=== PATIENT | female | born 1930 | race Caucasian/White ===

== ENCOUNTER 2019-11-08 23:55 | Observation (INO) ==
[2019-11-09] MEDS ORDERED: ONDANSETRON ODT 4 MG TABLET PO STA (00:23)
[2019-11-09] MEDS ORDERED: ONDANSETRON 4 MG/2 ML VIAL IV PRN (03:11)
[2019-11-09] MEDS ORDERED: ALBUTEROL/IPRATROPIUM 3 ML NEB RESP TX PRN (03:11)
[2019-11-09] MEDS ORDERED: ACETAMINOPHEN 325 MG TABLET PO PRN (03:11)
[2019-11-09] MEDS ORDERED: MELATONIN 3 MG TABLET PO PRN (03:11)
[2019-11-09] MEDS: SODIUM CHLORIDE 0.9% 1,000 ML IV SCH ×2 (03:30→18:51)
[2019-11-09 07:47] LABS: Basophils # 0.1 10*3/uL (0.0-0.2); Basophils % 0.6 % (0.0-0.8); Eosinophils # 0.1 10*3/uL (0.0-0.87); Hematocrit 33.7 VOL% (35.7-47.0); Hemoglobin 11.1 GM/DL (12.0-16.0); Immature Granulocytes % 0.4 %; Immature Granulocytes Absolute 0.04 #; Lymphocytes # 3.7 10*3/uL (1.4-4.0); Lymphocytes % 38.7 % (21.3-54.2); Mean Corpuscular HGB Conc 32.9 GM/DL (32-36); Mean Corpuscular Volume 95.2 FL (87-102); Mean Platelet Volume 10.2 FL (9.6-12.0); Neutrophils % 51.3 % (38.7-73.9); Platelet Count 326 T/CUMM (130-400); Red Blood Count 3.54 MC/CUMM (3.8-5.5); Red Cell Distribution Width 13.3 % (9.3-17.3); White Blood Count 9.5 T/CUMM (4-12)
[2019-11-09 08:11] LABS: Bilirubin,Total 0.4 MG/DL (0.2-1.0); Calcium 8.2 MG/DL (8.5-10.1); Osmolality,Calculated 282.4 MOS/KG (273-304); Total Protein 6.8 G/DL (6.4-8.3)
[2019-11-09] MEDS: PANTOPRAZOLE 40 MG TABLET PO SCH (10:07)
[2019-11-09] MEDS: DOCUSATE SODIUM 100 MG CAPSULE PO SCH ×2 (10:07→20:48)
[2019-11-09] MEDS: METOPROLOL SUCCINATE XL 25 MG TABLET PO SCH (10:07)
[2019-11-09] MEDS: ASPIRIN EC 325 MG TABLET PO SCH (10:07)
[2019-11-09] MEDS: TOLTERODINE LA 4 MG CAPSULE PO SCH (10:07)
[2019-11-09] MEDS: CITALOPRAM 20 MG TABLET PO SCH (10:07)
[2019-11-09] MEDS: KETOROLAC 10 MG TABLET PO PRN (20:48)
[2019-11-10] MEDS: KETOROLAC 10 MG TABLET PO PRN (03:19)
[2019-11-10 07:11] LABS: Amorphous Crystals,Urine Few /HPF (Few); Apearance,Urine Slightly Hazy (Clear); Bacteria,Urine Moderate /HPF (Few); Bilirubin,Urine Negative (Negative); Blood, Urine Small mg/dL (Negative); Glucose,Urine (UA) Negative (Negative); Ketones,Urine Negative (Negative); Mucus,Urine Few /LPF (Occasional); Nitrite,Urine Positive (Negative); Protein,Urine Negative; RBC,Urine 2 /HPF (0-4); Squamous Epithelial Cell,Urine Occasional /HPF (0-10); Urine Color Yellow (Yellow); Urine Specific Gravity 1.013 (1.001-1.035); Urine Urobilinogen < 2.0 EU/DL (0.2-1.0); WBC,Urine 37 /HPF (0-6)
[2019-11-10] MEDS: DOCUSATE SODIUM 100 MG/10 ML UDCUP PO SCH ×2 (09:01→23:21)
[2019-11-10] MEDS: METOPROLOL SUCCINATE XL 25 MG TABLET PO SCH (09:01)
[2019-11-10] MEDS: CITALOPRAM 20 MG TABLET PO SCH (09:01)
[2019-11-10] MEDS: ASPIRIN EC 325 MG TABLET PO SCH (09:01)
[2019-11-10] MEDS: PANTOPRAZOLE 40 MG TABLET PO SCH (09:01)
[2019-11-10] MEDS: TOLTERODINE LA 4 MG CAPSULE PO SCH (09:02)
[2019-11-10] MEDS ORDERED: cefTRIAXone 1,000 MG in SYRINGE 1 EACH IV ONE (11:00)
[2019-11-10] MEDS: SODIUM CHLORIDE 0.9% 1,000 ML IV SCH ×2 (11:42→20:09)
[2019-11-10] MEDS: NITROFURANTOIN MACRO/MONO 100 MG CAPSULE PO SCH ×2 (12:13→23:21)
[2019-11-11] MEDS: KETOROLAC 10 MG TABLET PO PRN (03:05)
[2019-11-11] MEDS: SODIUM CHLORIDE 0.9% 1,000 ML IV SCH (06:10)
[2019-11-11] MEDS: PANTOPRAZOLE 40 MG TABLET PO SCH (10:20)
[2019-11-11] MEDS: TOLTERODINE LA 4 MG CAPSULE PO SCH (10:20)
[2019-11-11] MEDS: DOCUSATE SODIUM 100 MG/10 ML UDCUP PO SCH ×2 (10:20→10:30)
[2019-11-11] MEDS: METOPROLOL SUCCINATE XL 25 MG TABLET PO SCH (10:20)
[2019-11-11] MEDS: CITALOPRAM 20 MG TABLET PO SCH (10:20)
[2019-11-11] MEDS: NITROFURANTOIN MACRO/MONO 100 MG CAPSULE PO SCH (10:21)
[2019-11-11] MEDS: ASPIRIN EC 325 MG TABLET PO SCH (10:21)
[2019-11-11 11:27] VITALS: BP 139/66
[2019-11-11] MEDS ORDERED: DIGOXIN 0.125 MG TABLET PO SCH (13:00)
== END 2019-11-11 12:18 | disposition home or self-care (01) ==
LOC: N.ED 23:55 → N.EDINP 23:55 → N.3E 11-09 03:10
PROVIDERS: ADMIT Family Medicine; ATTEND Family Medicine

== ENCOUNTER 2020-01-09 16:11 | Inpatient (IN) ==
[2020-01-09] MEDS ORDERED: SODIUM CHLORIDE 0.9% 500 ML IV STA (16:38)
[2020-01-09 17:30] LABS: Basophils # 0.1 10*3/uL (0.0-0.2); Basophils % 0.5 % (0.0-0.8); Eosinophils # 0.1 10*3/uL (0.0-0.87); Hematocrit 32.5 VOL% (35.7-47.0); Hemoglobin 10.7 GM/DL (12.0-16.0); Immature Granulocytes % 0.3 %; Immature Granulocytes Absolute 0.03 #; Lymphocytes # 3.9 10*3/uL (1.4-4.0); Lymphocytes % 41.9 % (21.3-54.2); Mean Corpuscular HGB Conc 32.9 GM/DL (32-36); Mean Corpuscular Volume 95.6 FL (87-102); Mean Platelet Volume 10.3 FL (9.6-12.0); Monocytes % 8.3 % (1.7-12.7); Platelet Count 380 T/CUMM (130-400); Red Cell Distribution Width 13.7 % (9.3-17.3); White Blood Count 9.2 T/CUMM (4-12)
[2020-01-09 17:54] LABS: Alanine Aminotransferase 18 U/L (13-56); Alkaline Phosphatase 96 U/L (45-117); Aspartate Amino Transferase 21 U/L (0-37); Bilirubin,Total < 0.39 MG/DL (0.2-1.0); Blood Urea Nitrogen 20 MG/DL (7-18); Calcium 8.7 MG/DL (8.5-10.1); Estimated Glom Filtration Rate 46 ML/MIN; Glucose 111 MG/DL (74-106); Osmolality,Calculated 286.1 MOS/KG (273-304); Total Protein 6.9 G/DL (6.4-8.3)
[2020-01-09 18:08] LABS: Apearance,Urine CLOUDY (Clear); Bacteria,Urine Many /HPF (Few); Bilirubin,Urine Negative (Negative); Blood, Urine Small mg/dL (Negative); Glucose,Urine (UA) Negative (Negative); Ketones,Urine Negative (Negative); Mucus,Urine Many /LPF (Occasional); Nitrite,Urine Positive (Negative); Protein,Urine Negative; RBC,Urine 2 /HPF (0-4); Squamous Epithelial Cell,Urine Occasional /HPF (0-10); Urine Color Yellow (Yellow); Urine Specific Gravity 1.013 (1.001-1.035); Urine Urobilinogen < 2.0 EU/DL (0.2-1.0); WBC,Urine 102 /HPF (0-6)
[2020-01-09 18:12] LABS: Barbiturates Screen,Urine Negative (Negative); Benzodiazepines Screen,Urine Negative (Negative); Cannabinoid Screen,Urine Negative (Negative); Opiate Screen,Urine Negative (Negative); Phencyclidine Screen,Urine Negative (Negative)
[2020-01-09] MEDS ORDERED: LEVOFLOXACIN INJ 750 MG in PREMIX 1 EACH IV STA (18:50)
[2020-01-09] MEDS ORDERED: ACETAMINOPHEN 325 MG TABLET PO PRN (20:27)
[2020-01-09] MEDS ORDERED: ONDANSETRON 4 MG/2 ML VIAL IV PRN (20:27)
[2020-01-09] MEDS ORDERED: MORPHINE 4 MG/1 ML VIAL IV PRN (20:27)
[2020-01-09] MEDS: SODIUM CHLORIDE 0.9% 1,000 ML IV SCH (21:52)
[2020-01-09] MEDS: DOCUSATE SODIUM 100 MG CAPSULE PO SCH (21:54)
[2020-01-10 04:52] LABS: Basophils # 0.1 10*3/uL (0.0-0.2); Basophils % 0.7 % (0.0-0.8); Eosinophils # 0.1 10*3/uL (0.0-0.87); Eosinophils % 1.6 % (0.00-10.9); Hematocrit 31.5 VOL% (35.7-47.0); Hemoglobin 10.4 GM/DL (12.0-16.0); Immature Granulocytes % 0.1 %; Immature Granulocytes Absolute 0.01 #; Lymphocytes # 4.3 10*3/uL (1.4-4.0); Lymphocytes % 51.6 % (21.3-54.2); Mean Corpuscular Volume 94.9 FL (87-102); Mean Platelet Volume 10.5 FL (9.6-12.0); Monocytes % 10.2 % (1.7-12.7); Neutrophils % 35.8 % (38.7-73.9); Platelet Count 387 T/CUMM (130-400); Red Blood Count 3.32 MC/CUMM (3.8-5.5); Red Cell Distribution Width 13.5 % (9.3-17.3); White Blood Count 8.3 T/CUMM (4-12)
[2020-01-10 05:20] LABS: Albumin 2.8 G/DL (3.4-5.0); Bilirubin,Total 0.8 MG/DL (0.2-1.0); Calcium 8.2 MG/DL (8.5-10.1); Osmolality,Calculated 285.8 MOS/KG (273-304); Total Protein 6.3 G/DL (6.4-8.3)
[2020-01-10 05:21] LABS: Eosinophils 1 % (0-10); Hypochromasia 1+; Lymphocytes 57 % (20-55); Platelet Estimate Adequate; Segmented Neutrophils 34 % (50-85); Total Cells Counted 100
[2020-01-10] MEDS: SODIUM CHLORIDE 0.9% 1,000 ML IV SCH ×3 (05:55→21:18)
[2020-01-10] MEDS: PANTOPRAZOLE 40 MG TABLET PO SCH (09:18)
[2020-01-10] MEDS ORDERED: POTASSIUM CHLORIDE 20 MEQ/15 ML UDCUP PO PRN (09:34)
[2020-01-10] MEDS ORDERED: traMADol 50 MG TABLET PO PRN (09:38)
[2020-01-10] MEDS: DOCUSATE SODIUM 100 MG CAPSULE PO SCH ×2 (09:43→21:12)
[2020-01-10] MEDS ORDERED: BISACODYL 10 MG SUPP RECTAL PRN (12:15)
[2020-01-10] MEDS ORDERED: BISACODYL 10 MG SUPP RECTAL ONE (12:15)
[2020-01-10] MEDS: POTASSIUM CHLORIDE RIDER 10 MEQ in PREMIX 1 EACH IV PRN ×4 (12:51→17:37)
[2020-01-10] MEDS: DIGOXIN 0.125 MG TABLET PO SCH (13:20)
[2020-01-10] MEDS: RIVASTIGMINE 1.5 MG CAPSULE PO SCH (17:36)
[2020-01-10] MEDS ORDERED: LEVOFLOXACIN INJ 250 MG in PREMIX 1 EACH IV SCH (21:00)
[2020-01-10] MEDS: TEMAZEPAM 15 MG CAPSULE PO SCH (21:13)
[2020-01-11] MEDS: SODIUM CHLORIDE 0.9% 1,000 ML IV SCH ×3 (05:22→17:22)
[2020-01-11 06:09] LABS: Basophils # 0.1 10*3/uL (0.0-0.2); Basophils % 0.9 % (0.0-0.8); Eosinophils # 0.2 10*3/uL (0.0-0.87); Eosinophils % 2.4 % (0.00-10.9); Hematocrit 32.2 VOL% (35.7-47.0); Hemoglobin 10.5 GM/DL (12.0-16.0); Immature Granulocytes % 0.2 %; Immature Granulocytes Absolute 0.01 #; Lymphocytes # 3.5 10*3/uL (1.4-4.0); Lymphocytes % 53.9 % (21.3-54.2); Mean Corpuscular HGB Conc 32.6 GM/DL (32-36); Mean Corpuscular Volume 97.3 FL (87-102); Mean Platelet Volume 10.8 FL (9.6-12.0); Monocytes % 10.2 % (1.7-12.7); Neutrophils % 32.4 % (38.7-73.9); Platelet Count 366 T/CUMM (130-400); Red Blood Count 3.31 MC/CUMM (3.8-5.5); Red Cell Distribution Width 14.1 % (9.3-17.3); White Blood Count 6.6 T/CUMM (4-12)
[2020-01-11 06:38] LABS: Calcium 8.1 MG/DL (8.5-10.1); Osmolality,Calculated 280.1 MOS/KG (273-304)
[2020-01-11 06:52] LABS: Acanthocytes 1+; Atypical Lymphocytes Few; Eosinophils 1 % (0-10); Lymphocytes 49 % (20-55); Segmented Neutrophils 38 % (50-85); Total Cells Counted 100
[2020-01-11 06:53] LABS: Microcytosis Slight; Platelet Estimate Normal
[2020-01-11] MEDS: cefTRIAXone 1,000 MG in SYRINGE 1 EACH IV SCH (09:20)
[2020-01-11] MEDS: DOCUSATE SODIUM 100 MG CAPSULE PO SCH ×2 (09:21→21:35)
[2020-01-11] MEDS: PANTOPRAZOLE 40 MG TABLET PO SCH (09:22)
[2020-01-11] MEDS: ASPIRIN EC 325 MG TABLET PO SCH (09:22)
[2020-01-11] MEDS: RIVASTIGMINE 1.5 MG CAPSULE PO SCH ×2 (09:23→17:23)
[2020-01-11] MEDS: POTASSIUM CHLORIDE RIDER 10 MEQ in PREMIX 1 EACH IV PRN ×5 (09:34→14:45)
[2020-01-11] MEDS ORDERED: SODIUM CHLOR 0.9% KCL 20 MEQ 20 MEQ/1,000 ML BAG IV SCH (15:30)
[2020-01-11] MEDS: TEMAZEPAM 15 MG CAPSULE PO SCH (21:32)
[2020-01-11] MEDS: POTASSIUM CHLORIDE 20 MEQ TABLET PO SCH (21:35)
[2020-01-12 06:15] LABS: Basophils % 0.3 % (0.0-0.8); Eosinophils # 0.3 10*3/uL (0.0-0.87); Eosinophils % 2.9 % (0.00-10.9); Hemoglobin 10.3 GM/DL (12.0-16.0); Immature Granulocytes % 0.3 %; Immature Granulocytes Absolute 0.03 #; Lymphocytes # 3.3 10*3/uL (1.4-4.0); Lymphocytes % 35.3 % (21.3-54.2); Mean Corpuscular HGB Conc 33.2 GM/DL (32-36); Mean Corpuscular Volume 95.7 FL (87-102); Mean Platelet Volume 10.8 FL (9.6-12.0); Monocytes % 9.2 % (1.7-12.7); Platelet Count 352 T/CUMM (130-400); Red Blood Count 3.24 MC/CUMM (3.8-5.5); Red Cell Distribution Width 13.8 % (9.3-17.3); White Blood Count 9.2 T/CUMM (4-12)
[2020-01-12 06:29] LABS: Albumin 2.6 G/DL (3.4-5.0); Bilirubin,Total 0.9 MG/DL (0.2-1.0); Calcium 8.1 MG/DL (8.5-10.1); Osmolality,Calculated 281.1 MOS/KG (273-304)
[2020-01-12] MEDS: cefTRIAXone 1,000 MG in SYRINGE 1 EACH IV SCH (09:23)
[2020-01-12] MEDS: ASPIRIN EC 325 MG TABLET PO SCH (09:24)
[2020-01-12] MEDS: POTASSIUM CHLORIDE 20 MEQ TABLET PO SCH ×2 (09:24→20:50)
[2020-01-12] MEDS: DOCUSATE SODIUM 100 MG CAPSULE PO SCH ×2 (09:24→20:50)
[2020-01-12] MEDS: RIVASTIGMINE 1.5 MG CAPSULE PO SCH ×2 (09:24→18:11)
[2020-01-12] MEDS: PANTOPRAZOLE 40 MG TABLET PO SCH (09:25)
[2020-01-12] MEDS: POTASSIUM CHLORIDE RIDER 10 MEQ in PREMIX 1 EACH IV PRN ×4 (09:48→14:08)
[2020-01-12] MEDS: SODIUM CHLORIDE 0.9% 1,000 ML IV SCH ×2 (13:35→18:42)
[2020-01-12] MEDS ORDERED: POTASSIUM CHLORIDE RIDER 10 MEQ in PREMIX 1 EACH IV SCH (19:00)
[2020-01-12] MEDS: SODIUM CHLOR 0.9% KCL 20 MEQ 20 MEQ/1,000 ML BAG IV SCH (20:42)
[2020-01-12] MEDS: TEMAZEPAM 15 MG CAPSULE PO SCH (20:44)
[2020-01-13 05:47] LABS: Basophils # 0.1 10*3/uL (0.0-0.2); Basophils % 0.9 % (0.0-0.8); Eosinophils # 0.3 10*3/uL (0.0-0.87); Eosinophils % 3.5 % (0.00-10.9); Hematocrit 30.9 VOL% (35.7-47.0); Hemoglobin 10.3 GM/DL (12.0-16.0); Immature Granulocytes % 0.2 %; Immature Granulocytes Absolute 0.02 #; Lymphocytes # 3.5 10*3/uL (1.4-4.0); Lymphocytes % 38.9 % (21.3-54.2); Mean Corpuscular HGB Conc 33.3 GM/DL (32-36); Mean Corpuscular Volume 95.7 FL (87-102); Mean Platelet Volume 10.5 FL (9.6-12.0); Monocytes % 9.7 % (1.7-12.7); Neutrophils % 46.8 % (38.7-73.9); Platelet Count 346 T/CUMM (130-400); Red Blood Count 3.23 MC/CUMM (3.8-5.5); Red Cell Distribution Width 13.9 % (9.3-17.3)
[2020-01-13 06:05] LABS: Calcium 8.4 MG/DL (8.5-10.1)
[2020-01-13] MEDS: RIVASTIGMINE 1.5 MG CAPSULE PO SCH (09:07)
[2020-01-13] MEDS: POTASSIUM CHLORIDE 20 MEQ TABLET PO SCH (09:08)
[2020-01-13] MEDS: PANTOPRAZOLE 40 MG TABLET PO SCH (09:08)
[2020-01-13] MEDS: ASPIRIN EC 325 MG TABLET PO SCH (09:09)
[2020-01-13] MEDS: DOCUSATE SODIUM 100 MG CAPSULE PO SCH (09:09)
[2020-01-13] MEDS: cefTRIAXone 1,000 MG in SYRINGE 1 EACH IV SCH (09:10)
[2020-01-13] MEDS: SODIUM CHLOR 0.9% KCL 20 MEQ 20 MEQ/1,000 ML BAG IV SCH (09:23)
[2020-01-13 12:15] VITALS: BP 99/53
[2020-01-13] MEDS: DIGOXIN 0.125 MG TABLET PO SCH (12:47)
[2020-01-13] MEDS ORDERED: TEMAZEPAM 15 MG CAPSULE PO SCH (18:00)
[2020-01-17] MEDS ORDERED: ERGOCALCIFEROL 50,000 UNIT CAPSULE PO SCH (09:00)
== END 2020-01-13 14:14 | disposition home health service (06) | DRG 690 ==
LOC: N.ED 16:11 → N.EDINP 16:11 → N.5E 19:36
PROVIDERS: ADMIT Family Medicine; ATTEND Family Medicine

== ENCOUNTER 2020-03-13 13:17 | Inpatient (IN) ==
[2020-03-13 14:24] LABS: Basophils % 0.3 % (0.0-0.8); Hematocrit 38.2 VOL% (35.7-47.0); Hemoglobin 12.3 GM/DL (12.0-16.0); Immature Granulocytes % 0.5 %; Immature Granulocytes Absolute 0.04 #; Lymphocytes # 1.8 10*3/uL (1.4-4.0); Lymphocytes % 22.5 % (21.3-54.2); Mean Corpuscular HGB Conc 32.2 GM/DL (32-36); Mean Corpuscular Volume 98.7 FL (87-102); Monocytes % 5.6 % (1.7-12.7); Neutrophils % 71.1 % (38.7-73.9); Platelet Count 311 T/CUMM (130-400); Red Blood Count 3.87 MC/CUMM (3.8-5.5); Red Cell Distribution Width 13.8 % (9.3-17.3); White Blood Count 7.8 T/CUMM (4-12)
[2020-03-13 14:38] LABS: Calcium 8.1 MG/DL (8.5-10.1)
[2020-03-13 14:39] LABS: Albumin 2.9 G/DL (3.4-5.0); Bilirubin,Total 1.08 MG/DL (0.2-1.0); Osmolality,Calculated 283.8 MOS/KG (273-304); Total Protein 7.7 G/DL (6.4-8.3)
[2020-03-13] MEDS ORDERED: SODIUM CHLORIDE 0.45% 1,000 ML IV SCH (17:00)
[2020-03-13] MEDS ORDERED: AZITHROMYCIN INJ 250 MG in SODIUM CHLORIDE 0.9% 250 ML IV SCH (17:00)
[2020-03-13] MEDS: ENOXAPARIN 30 MG/0.3 ML SYRINGE SUBCUT SCH (19:32)
[2020-03-13] MEDS: HYDROXYCHLOROQUINE 200 MG TABLET PO SCH (21:00)
[2020-03-13] MEDS ORDERED: NORTRIPTYLINE 10 MG CAPSULE PO SCH ×2 (21:00→23:40)
[2020-03-13] MEDS: DOCUSATE SODIUM 100 MG CAPSULE PO SCH (21:00)
[2020-03-13] MEDS ORDERED: CITALOPRAM 20 MG TABLET PO SCH (23:38)
[2020-03-14] MEDS: TEMAZEPAM 7.5 MG CAPSULE PO PRN ×2 (01:00→21:00)
[2020-03-14] MEDS: ACETAMINOPHEN 325 MG TABLET PO PRN (01:44)
[2020-03-14 06:28] LABS: Calcium 8.4 MG/DL (8.5-10.1); Osmolality,Calculated 287.4 MOS/KG (273-304)
[2020-03-14] MEDS: ASPIRIN EC 325 MG TABLET PO SCH (08:45)
[2020-03-14] MEDS: DOCUSATE SODIUM 100 MG CAPSULE PO SCH ×2 (08:45→21:00)
[2020-03-14] MEDS: PANTOPRAZOLE 40 MG TABLET PO SCH (08:45)
[2020-03-14] MEDS: METOPROLOL SUCCINATE XL 25 MG TABLET PO SCH (08:45)
[2020-03-14] MEDS: HYDROXYCHLOROQUINE 200 MG TABLET PO SCH ×2 (08:45→21:00)
[2020-03-14] MEDS: DIGOXIN 0.125 MG TABLET PO SCH (08:45)
[2020-03-14] MEDS: ZINC SULFATE 220 MG CAPSULE PO SCH (08:45)
[2020-03-14] MEDS: POTASSIUM CHLORIDE INJ 40 MEQ in SODIUM CHLORIDE 0.45% 1,000 ML IV SCH (14:13)
[2020-03-14] MEDS: ENOXAPARIN 30 MG/0.3 ML SYRINGE SUBCUT SCH (19:05)
[2020-03-15] MEDS: ACETAMINOPHEN 325 MG TABLET PO PRN (00:10)
[2020-03-15] MEDS: POTASSIUM CHLORIDE INJ 40 MEQ in SODIUM CHLORIDE 0.45% 1,000 ML IV SCH ×2 (00:42→11:02)
[2020-03-15] MEDS: cefTRIAXone 500 MG in SYRINGE 1 EACH IV SCH ×2 (00:51→18:01)
[2020-03-15 05:28] LABS: Basophils % 0.3 % (0.0-0.8); Hematocrit 33.5 VOL% (35.7-47.0); Immature Granulocytes % 0.3 %; Immature Granulocytes Absolute 0.02 #; Lymphocytes # 2.3 10*3/uL (1.4-4.0); Lymphocytes % 37.8 % (21.3-54.2); Mean Corpuscular HGB Conc 32.8 GM/DL (32-36); Mean Corpuscular Volume 94.1 FL (87-102); Mean Platelet Volume 11.1 FL (9.6-12.0); Monocytes % 8.2 % (1.7-12.7); Neutrophils % 53.4 % (38.7-73.9); Platelet Count 296 T/CUMM (130-400); Red Blood Count 3.56 MC/CUMM (3.8-5.5); Red Cell Distribution Width 13.2 % (9.3-17.3); White Blood Count 6.1 T/CUMM (4-12)
[2020-03-15 06:08] LABS: Albumin 2.6 G/DL (3.4-5.0); Bilirubin,Total 0.6 MG/DL (0.2-1.0); Calcium 8.1 MG/DL (8.5-10.1); Osmolality,Calculated 277.8 MOS/KG (273-304); Total Protein 6.8 G/DL (6.4-8.3)
[2020-03-15] MEDS: DOCUSATE SODIUM 100 MG CAPSULE PO SCH (10:19)
[2020-03-15] MEDS: DIGOXIN 0.125 MG TABLET PO SCH (10:19)
[2020-03-15] MEDS: ASPIRIN EC 325 MG TABLET PO SCH (10:19)
[2020-03-15] MEDS: HYDROXYCHLOROQUINE 200 MG TABLET PO SCH ×2 (10:19→22:00)
[2020-03-15] MEDS: METOPROLOL SUCCINATE XL 25 MG TABLET PO SCH (10:20)
[2020-03-15] MEDS: PANTOPRAZOLE 40 MG TABLET PO SCH (10:20)
[2020-03-15] MEDS: ZINC SULFATE 220 MG CAPSULE PO SCH (10:20)
[2020-03-15] MEDS: ENOXAPARIN 30 MG/0.3 ML SYRINGE SUBCUT SCH (18:01)
[2020-03-15] MEDS: METOPROLOL TARTRATE 25 MG TABLET PO SCH (22:00)
[2020-03-15] MEDS: DOCUSATE SODIUM 100 MG/10 ML UDCUP PO SCH (22:00)
[2020-03-16] MEDS: POTASSIUM CHLORIDE INJ 40 MEQ in SODIUM CHLORIDE 0.45% 1,000 ML IV SCH ×2 (02:31→14:24)
[2020-03-16 07:36] LABS: Apearance,Urine CLEAR (Clear); Bacteria,Urine Occasional /HPF (Few); Bilirubin,Urine Negative (Negative); Blood, Urine Small mg/dL (Negative); Glucose,Urine (UA) Negative (Negative); Ketones,Urine 20 mg/dL (Negative); Mucus,Urine Occasional /LPF (Occasional); Nitrite,Urine Negative (Negative); Protein,Urine Negative; RBC,Urine 3 /HPF (0-4); Squamous Epithelial Cell,Urine Occasional /HPF (0-10); Urine Color Yellow (Yellow); Urine Specific Gravity 1.016 (1.001-1.035); Urine Urobilinogen < 2.0 EU/DL (0.2-1.0); WBC,Urine 3 /HPF (0-6)
[2020-03-16] MEDS: HYDROXYCHLOROQUINE 200 MG TABLET PO SCH ×2 (10:00→20:38)
[2020-03-16] MEDS: METOPROLOL TARTRATE 25 MG TABLET PO SCH ×2 (10:00→20:38)
[2020-03-16] MEDS: DOCUSATE SODIUM 100 MG/10 ML UDCUP PO SCH ×2 (10:00→20:38)
[2020-03-16] MEDS: DIGOXIN 0.125 MG TABLET PO SCH (10:00)
[2020-03-16] MEDS: ASPIRIN EC 325 MG TABLET PO SCH (10:00)
[2020-03-16] MEDS: OMEPRAZOLE ODT 20 MG TABLET PER TUBE SCH (10:01)
[2020-03-16] MEDS: ZINC SULFATE 220 MG CAPSULE PO SCH (10:01)
[2020-03-16] MEDS: cefTRIAXone 500 MG in SYRINGE 1 EACH IV SCH (14:45)
[2020-03-16] MEDS: ENOXAPARIN 30 MG/0.3 ML SYRINGE SUBCUT SCH (16:22)
[2020-03-17] MEDS: POTASSIUM CHLORIDE INJ 40 MEQ in SODIUM CHLORIDE 0.45% 1,000 ML IV SCH ×2 (02:35→15:40)
[2020-03-17] MEDS: DOCUSATE SODIUM 100 MG/10 ML UDCUP PO SCH (11:06)
[2020-03-17] MEDS: ASPIRIN EC 325 MG TABLET PO SCH (11:06)
[2020-03-17] MEDS: DIGOXIN 0.125 MG TABLET PO SCH (11:07)
[2020-03-17] MEDS: HYDROXYCHLOROQUINE 200 MG TABLET PO SCH ×2 (11:08→20:36)
[2020-03-17] MEDS: METOPROLOL TARTRATE 25 MG TABLET PO SCH ×2 (11:08→20:35)
[2020-03-17] MEDS: OMEPRAZOLE ODT 20 MG TABLET PER TUBE SCH (11:11)
[2020-03-17] MEDS: cefTRIAXone 500 MG in SYRINGE 1 EACH IV SCH (12:30)
[2020-03-17] MEDS ORDERED: ACETAMINOPHEN 325 MG TABLET PO PRN (18:00)
[2020-03-17] MEDS ORDERED: DOCUSATE SODIUM 100 MG/10 ML UDCUP PO PRN (18:00)
[2020-03-17] MEDS: ENOXAPARIN 30 MG/0.3 ML SYRINGE SUBCUT SCH (18:11)
[2020-03-17] MEDS: POTASSIUM CHLORIDE INJ 40 MEQ in LACTATED RINGERS 1,000 ML IV SCH (18:12)
[2020-03-18 03:48] LABS: Basophils % 0.1 % (0.0-0.8); Eosinophils % 0.1 % (0.00-10.9); Hematocrit 41.2 VOL% (35.7-47.0); Hemoglobin 13.7 GM/DL (12.0-16.0); Immature Granulocytes % 0.5 %; Immature Granulocytes Absolute 0.04 #; Lymphocytes # 2.4 10*3/uL (1.4-4.0); Lymphocytes % 31.8 % (21.3-54.2); Mean Corpuscular HGB Conc 33.3 GM/DL (32-36); Mean Corpuscular Volume 94.5 FL (87-102); Mean Platelet Volume 11.1 FL (9.6-12.0); Monocytes % 11.2 % (1.7-12.7); Neutrophils % 56.3 % (38.7-73.9); Platelet Count 357 T/CUMM (130-400); Red Blood Count 4.36 MC/CUMM (3.8-5.5); Red Cell Distribution Width 13.3 % (9.3-17.3); White Blood Count 7.5 T/CUMM (4-12)
[2020-03-18 04:20] LABS: Albumin 2.4 G/DL (3.4-5.0); Bilirubin,Total 0.4 MG/DL (0.2-1.0); Calcium 8.2 MG/DL (8.5-10.1); Osmolality,Calculated 258.9 MOS/KG (273-304); Total Protein 6.8 G/DL (6.4-8.3)
[2020-03-18 04:44] LABS: Burr Cells Slight; Hypochromasia Slight; Lymphocytes 25 % (20-55); Ovalocytes Slight; Platelet Estimate Adequate; Segmented Neutrophils 66 % (50-85); Total Cells Counted 100
[2020-03-18] MEDS: cefTRIAXone 500 MG in SYRINGE 1 EACH IV SCH (10:10)
[2020-03-18] MEDS: METOPROLOL TARTRATE 25 MG TABLET PO SCH ×2 (10:40→22:00)
[2020-03-18] MEDS: ASPIRIN EC 325 MG TABLET PO SCH (10:40)
[2020-03-18] MEDS: OMEPRAZOLE ODT 20 MG TABLET PER TUBE SCH (10:41)
[2020-03-18] MEDS: HYDROXYCHLOROQUINE 200 MG TABLET PO SCH (10:41)
[2020-03-18] MEDS: ENOXAPARIN 30 MG/0.3 ML SYRINGE SUBCUT SCH (15:36)
[2020-03-18] MEDS: LACTATED RINGERS 1,000 ML IV SCH (15:37)
[2020-03-18] MEDS: POTASSIUM CHLORIDE INJ 40 MEQ in LACTATED RINGERS 1,000 ML IV SCH (15:37)
[2020-03-19] MEDS: ASPIRIN EC 325 MG TABLET PO SCH (08:38)
[2020-03-19] MEDS: OMEPRAZOLE ODT 20 MG TABLET PER TUBE SCH (08:38)
[2020-03-19] MEDS: LACTATED RINGERS 1,000 ML IV SCH (08:38)
[2020-03-19] MEDS: ENOXAPARIN 30 MG/0.3 ML SYRINGE SUBCUT SCH (08:38)
[2020-03-19] MEDS: cefTRIAXone 500 MG in SYRINGE 1 EACH IV SCH (08:38)
[2020-03-19] MEDS ORDERED: DIGOXIN 0.125 MG TABLET PO SCH (09:00)
[2020-03-19] MEDS: METOPROLOL TARTRATE 25 MG TABLET PO SCH ×2 (10:01→21:28)
[2020-03-19] MEDS ORDERED: SODIUM CHLORIDE 0.9% 500 ML IV ONE (17:06)
[2020-03-20] MEDS: cefTRIAXone 500 MG in SYRINGE 1 EACH IV SCH (09:41)
[2020-03-20] MEDS: ENOXAPARIN 30 MG/0.3 ML SYRINGE SUBCUT SCH (09:41)
[2020-03-20] MEDS: METOPROLOL TARTRATE 25 MG TABLET PO SCH (09:58)
[2020-03-20] MEDS: ASPIRIN EC 325 MG TABLET PO SCH (09:58)
[2020-03-20] MEDS: OMEPRAZOLE ODT 20 MG TABLET PER TUBE SCH (09:59)
[2020-03-20] MEDS: LACTATED RINGERS 1,000 ML IV SCH (10:56)
[2020-03-20 17:42] VITALS: BP 111/50
== END 2020-03-20 19:10 | disposition swing bed (61) | DRG 177 ==
LOC: EDBD → EDUNIT# → N.ED 13:17 → N.EDINP 16:40 → N.2E 18:15 → N.2W 03-15 13:20
PROVIDERS: ADMIT Family Medicine; ATTEND Family Medicine